=== PATIENT | male | born 1955 | race Caucasian/White ===

== ENCOUNTER 2023-03-17 06:00 | Inpatient (IN) | payer OTHER ==
[2023-03-16 15:12] LABS: Absolute Lymphocytes (CBC) 1.2 K/uL (0.7-4.9); Hematocrit 39.4 % (39.6-49.0); Lymphocytes % 10.7 % (15.3-44.8); MCV 86.8 fL (80-100); MPV 7.7 fL (7.6-11.3); RBC Red Blood Cell Count 4.53 M/uL (4.33-5.43)
--- NOTE | 2023-03-16 15:12 | RAD REPORT ---
EXAM DESCRIPTION: RAD - Chest Single View - 03/16/2023 3:03 pm CLINICAL HISTORY: PRE-OP COMPARISON: <Comparisons> FINDINGS: Lines: None. Lungs: No evidence of edema or pneumonia. Pleural: No significant pleural effusions or pneumothorax. Cardiac: The heart size is within normal limits. Mediastinum: Within normal limits. Bones: No acute fractures. Other: None IMPRESSION: No acute cardiopulmonary disease.
[2023-03-17] MEDS ORDERED: CEFAZOLIN SODIUM 1 GM/VIAL ONE (06:24)
[2023-03-17] MEDS ORDERED: Ringers Lactate 1,000 ML IV ONE (06:24)
[2023-03-17] MEDS ORDERED: BUPIVACAINE 0.5% PF 10 ML VIAL ONE ×2 (06:59→08:07)
[2023-03-17] MEDS ORDERED: MIDAZOLAM HCL 2 MG/2 ML INJ ONE (07:25)
[2023-03-17] MEDS ORDERED: FENTANYL CITR 100 MCG/2 ML ONE (07:25)
[2023-03-17] MEDS ORDERED: propofoL 200 MG/20 ML VIAL IV ONE ×2 (07:25→08:07)
[2023-03-17] MEDS ORDERED: LIDOCAINE 2% MPF 5 ML VIAL ONE (07:26)
[2023-03-17] MEDS ORDERED: ONDANSETRON 4 MG/2 ML VIAL ONE (07:26)
[2023-03-17] MEDS ORDERED: dexAMETHasone 4 MG/ML VIAL ONE (08:03)
--- NOTE | 2023-03-17 08:46 | P.OP ---
Date of Service: 03/17/23 Preop diagnosis: Infected cyst right posterior shoulder Postop diagnosis: Same with necrotizing infection down to the muscle Procedure performed: Wide excision of infected sebaceous cyst 10 x 8 cm to muscle Surgeon: Efraín Pyle MD School Principal: None Estimated blood loss: Minimal Specimen: Cyst and pus Findings: As above Anesthesia: General Complications: None Drains: None Fluids and blood products: Nonapplicable Disposition: Recovery room Operative note: Patient brought to the OR and placed in supine position. General anesthesia begun. Patient placed in the left lateral position. Patient prepped and draped in the usual sterile fashion. Marcaine 0.5% infiltrated for postop pain control. 15 blade used to make a 10 x 4 cm incision and then dissection proceeded to excise this infected cyst down to the muscle. The cyst itself was approximately 10 x 8 cm. There was some purulence inside the cyst. Cultures were done. Cyst wall was attached to the muscle on the posterior aspect of the wound. Wound was irrigated and bleeding controlled with cautery. All nonviable tissue was excised. Then a wound VAC was placed in the standard fashion. Patient was awakened and taken to recovery room in good general condition. CC: Dr. Pitts's office
[2023-03-17] MEDS: FENTANYL CITR 100 MCG/2 ML ONE ×2 (09:03→09:08)
[2023-03-17] MEDS ORDERED: KETOROLAC 30 MG/ML INJ ONE (09:07)
[2023-03-17] MEDS ORDERED: HYDROMORPHONE HCL 1 MG/ML INJ ONE (09:19)
[2023-03-17] MEDS ORDERED: ONDANSETRON 4 MG/2 ML VIAL IV PRN (10:09)
[2023-03-17] MEDS ORDERED: HYDROMORPHONE HCL 1 MG/ML INJ IV PRN (10:09)
[2023-03-17] MEDS ORDERED: HYDROCODONE/APAP 7.5/325 MG TAB PO PRN (10:10)
[2023-03-17 12:17] VITALS: BMI 27.2
[2023-03-17] MEDS: NACHLORIDE 0.45% 1,000 ML IV SCH (12:41)
[2023-03-17] MEDS: VANCOMYCIN 1.5 GM in NA CHLORIDE 0.9% 500 ML IVPB SCH ×2 (12:42→23:36)
[2023-03-17] MEDS ORDERED: TRAMADOL HCL 50 MG TAB PO PRN (14:25)
[2023-03-17] MEDS ORDERED: ACETAMINOPHEN 500 MG TAB PO PRN (14:26)
[2023-03-17] MEDS: PIPER TAZO 3.375 GM in NA CHLORIDE 0.9% 100 ML IV SCH (17:01)
--- NOTE | 2023-03-17 21:12 | HP ---
Date of Admission: 03/17/2023 Chief Complaint: Back pain. History Of Present Illness: This is a 68-year-old very pleasant male patient who came into office on 03/13/2023 with painful swelling over his right upper back. The patient has a history of lipoma for a long time and never had any symptoms related to that and had remained unchanged for many years, bu t about 3 to 4 days before he came to see me, he started to have pain in this area and started to hav e fever for couple of days. After I evaluated him, we started him on antibiotic doxycycline and pain medication tramadol and referred him to general surgeon Dr. Pyle as I was concerned about infected lipoma. Dr. Pyle evaluated him and scheduled him to have surgery as outpatient today and after the surgery, Dr. Pyle informed me regarding findings and recommendation to admit him to hospital for fur ther management including IV antibiotics and wound care management. Allergies: HYDROCODONE CAUSING NAUSEA. Medications: At home he takes tramadol 50 mg 2 times a day as needed for pain, which was just starte d last week; amlodipine 5 mg 2 times a day; atorvastatin 20 mg daily; lisinopril/HCTZ 20/12.5 one tab let 2 times a day; and omeprazole 20 mg daily. Review of Systems: Constitutional: As mentioned above. Dermatology: As mentioned above. All other systems reviewed and negative. Past Medical History: Significant for hypertension, mixed hyperlipidemia, gastroesophageal reflux di sease, benign prostatic hypertrophy, and erectile dysfunction. Past Surgical History: Carpal tunnel surgery. Family History: Father , had pulmonary embolism. Mother had heart disease, diabetes, uterine ca ncer. Social History: Positive for smoking. Use of alcohol weekly. Physical Examination: Vital Signs: Temperature 97.4, pulse 65, respiratory rate 16, blood pressure 103/66, and oxygen satu ration 100%. Height 5 feet 10 inches, weight 190 pounds. General: Awake, alert, oriented, not in distress. HEENT: Head atraumatic, normocephalic. Conjunctivae nonerythematous. Sclerae white. Mouth, no thr ush or edema noted. Ears/Nose, no mass, lesion, discharge noted. Neck: Supple. No JVD, lymph nodes, bruit, thyromegaly noted. Lungs: Bilateral good equal air entry. Clear to auscultation. No rhonchi. No rales. Heart: Normal heart sounds, no murmur or gallop. Abdomen: Soft, bowel sounds normal. No guarding, rigidity, tenderness, mass, hepatosplenomegaly, dis tention, or bruit noted. Extremities: No leg edema. No calf tenderness. Skin: No rash, ulcer, cellulitis. Lymphatics: No lymph node enlargement in neck, supraclavicular, infraclavicular region. Neuro: No focal neurological deficit. Chest: Unremarkable. External Genitalia: Deferred. Rectal: Deferred. Back: Examination shows presence of wound VAC dressing behind the right posterior axillary fold. Morley rrounding skin appears normal. Laboratory Data: Yesterday white count was 11.6, hemoglobin 12.8, and platelets 349. Sodium 136, po tassium 4, chloride 103, bicarb 30, BUN 17, creatinine 0.86, and glucose 99. Impression: 1.Abscess, back. 2.Hypertension. 3.Mixed hyperlipidemia. 4.Gastroesophageal reflux disease. 5.Benign prostatic hypertrophy. 6.Anemia, unspecified. Plan: Admit the patient to hospital for further evaluation and management of this problem. The [facility] ent is appropriate for inpatient and is expected to spend 2 midnights in hospital. We will continue to follow with Dr. Pyle regarding wound care management. We will go ahead and start him on empiric antibiotic right now, which is Zosyn and vancomycin. SCDs were ordered for DVT prophylaxis. The pat ient's blood pressure is on the lower side right now and we will not start any antihypertensive medic ation at this point, but monitor blood pressure and start antihypertensive medication at appropriate time. For hyperlipidemia, we will start statin therapy per order. For gastroesophageal reflux disea se, we will start proton-pump inhibitor, which is pantoprazole per order. The patient really does no t have any pain when I saw him this afternoon and he does not want to take hydrocodone, so I have ord ered Tylenol for mild pain, tramadol for moderate pain, and he already has Dilaudid ordered for sever e pain. Plan of treatment discussed with him and I will see him tomorrow for followup. ZACARIAS/MODL Voice ID: [id number]
[2023-03-18] MEDS: NACHLORIDE 0.45% 1,000 ML IV SCH ×3 (00:20→23:32)
[2023-03-18] MEDS: PIPER TAZO 3.375 GM in NA CHLORIDE 0.9% 100 ML IV SCH ×3 (02:10→16:17)
[2023-03-18 06:00] LABS: Absolute Lymphocytes (CBC) 1.6 K/uL (0.7-4.9); Hematocrit 37.9 % (39.6-49.0); Lymphocytes % 14.7 % (15.3-44.8); MCV 86.3 fL (80-100); MPV 8.3 fL (7.6-11.3); RBC Red Blood Cell Count 4.39 M/uL (4.33-5.43)
[2023-03-18 06:13] LABS: Magnesium 2.1 mg/dL (1.6-2.4); Phosphorus 3.4 mg/dL (2.5-4.9); Potassium 4.4 mEq/L (3.5-5.1)
--- NOTE | 2023-03-18 09:18 | PN ---
Date of Progress Note: 03/18/2023 Subjective: The patient is awake, alert. No complaints. Objective: Vital Signs: Stable, afebrile. Extremities: Examination of the wound reveals minimal erythema around the wound VAC. No warmth is p resent anymore. Laboratory Data: Reviewed. Still has slight leukocytosis with a left shift. Gram stain is showing gram-positive cocci in pairs and chains. Sensitivity is pending. Assessment: Status was wide excision of an infected sebaceous cyst. Recommendations: Continue IV antibiotics. Check cultures and adjust the antibiotics. Continue woun d care as ordered. Probable discharge in 48 hours. [facility]. /MODL Voice ID: [id number] Report ID: [id number]
[2023-03-18] MEDS: VANCOMYCIN 1.5 GM in NA CHLORIDE 0.9% 500 ML IVPB SCH ×2 (12:19→23:30)
[2023-03-18] MEDS: HYDROMORPHONE HCL 1 MG/ML INJ IV PRN (19:51)
[2023-03-19] MEDS: PIPER TAZO 3.375 GM in NA CHLORIDE 0.9% 100 ML IV SCH ×3 (01:55→16:24)
[2023-03-19] MEDS: HYDROMORPHONE HCL 1 MG/ML INJ IV PRN ×4 (02:13→21:08)
[2023-03-19] MEDS: VANCOMYCIN 1.25 GM in NA CHLORIDE 0.9% 250 ML IVPB SCH ×2 (11:57→23:26)
--- NOTE | 2023-03-19 14:49 | EKG ---
Test Date: 2023-03-16 Test Time: 15:13:03 Clinical Support Associate: KORTNEY MEASUREMENT RESULTS: Intervals: Rate: 73 ME: 174 QRSD: 94 QT: 392 QTc: 431 Riddle: P: 61 ME: 174 QRS: 51 T: 44 INTERPRETIVE STATEMENTS: Normal sinus rhythm Normal ECG Compared to ECG 12/17/2000 10:22:00 No significant changes Electronically Signed On 03-19-23 14:45:30 CDT by Jabier Espinosa
[2023-03-19] MEDS: NACHLORIDE 0.45% 1,000 ML IV SCH (21:45)
[2023-03-20] MEDS: PIPER TAZO 3.375 GM in NA CHLORIDE 0.9% 100 ML IV SCH ×2 (01:46→08:04)
[2023-03-20] MEDS ORDERED: PIPERACIL/TAZO 3.375 GM VIAL IV ONE (01:47)
[2023-03-20 02:25] VITALS: O2SAT 97
[2023-03-20] MEDS: NACHLORIDE 0.45% 1,000 ML IV SCH (02:44)
[2023-03-20 04:22] LABS: Absolute Lymphocytes (CBC) 2.9 K/uL (0.7-4.9); Hematocrit 38.1 % (39.6-49.0); Lymphocytes % 28.6 % (15.3-44.8); MCV 86.5 fL (80-100); MPV 8.2 fL (7.6-11.3); RBC Red Blood Cell Count 4.41 M/uL (4.33-5.43)
[2023-03-20 04:40] LABS: Albumin 2.6 g/dL (3.4-5.0); Bilirubin Total 0.3 mg/dL (0.2-1.0); Magnesium 2.2 mg/dL (1.6-2.4); Potassium 4.1 mEq/L (3.5-5.1); Protein, Total 6.3 g/dL (6.4-8.2)
[2023-03-20 08:24] VITALS: BP 149/81; TEMP 97.5
[2023-03-20] MEDS ORDERED: MEDIHONEY 44 ML TOPICAL TUBE TOP SCH (09:37)
[2023-03-20] MEDS: VANCOMYCIN 1.25 GM in NA CHLORIDE 0.9% 250 ML IVPB SCH (12:00)
--- NOTE | 2023-03-20 14:11 | PN ---
Date of Progress Note: 03/20/2023 Subjective: The patient is awake, alert. No complaint. Objective: Vital Signs: Stable, afebrile. Extremities: Wound is examined and it shows minimal fibrin. No surrounding erythema, warmth, or narendra ma. No purulent discharge. There was some granulation tissue present. Laboratory Data: His white count is normal with no left shift anymore and his sensitivity is still p ending, but appears to be a strep organism. Assessment: Status post wide excision of infected cyst. Recommendations: The patient can be discharged home on Augmentin and doxycycline per Dr. Pitts. Foll ow up with me in 1 week. Continue wound VAC with [facility]. /MODL Voice ID: [id number] Report ID: [id number]
--- NOTE | 2023-03-21 00:48 | PN ---
Date of Progress Note: 03/18/2023 Subjective: The patient was seen this morning for followup. No new complaints or problems reported by patient. He was lying in bed. Denies any nausea or vomiting. Does not have much pain in the magda gical site. Objective: Vital Signs: Reviewed. HEENT: Unremarkable. Lungs: Clear to auscultation. Heart: Sounds normal. Abdomen: Soft. Bowel sounds normal. No guarding, rigidity, tenderness, or distention. Extremities: No leg edema. Back: Patient has a wound VAC present, very slight erythematous area of the edges of the wound. Laboratory Data: White count 11.1, hemoglobin 12.4, platelets 353. Sodium 134, potassium 4.4, chlor sher 102, bicarb 30, BUN 19, creatinine 0.75, glucose 100. Impression: 1.Cellulitis/abscess, back. 2.Hypertension. 3.Hyperlipidemia. Plan: We will go ahead and continue current vancomycin and Zosyn. Follow up on culture results. We will continue wound care management per Dr. Pyle. Continue current pain medication per order and t he patient has SCD in place for DVT prophylaxis. I will see him tomorrow for followup. ZACARIAS/MODL Voice ID: [id number] Report ID: [id number]
--- NOTE | 2023-03-21 01:00 | PN ---
Subjective: The patient was seen today via tele visit, which included audio and video component. De nies any new complaints. No chest pain or shortness of breath. No nausea or vomiting. Denies any s ignificant amount of pain. Objective: Vital Signs: Reviewed. He remains afebrile. Laboratory Data: There are no new labs today. Wound culture is pending. Impression: 1.Cellulitis/abscess, back. 2.Hypertension. 3.Hyperlipidemia. Plan: We will go ahead and continue current IV antibiotics, which is vancomycin and Zosyn. We will go ahead and repeat blood work tomorrow morning and I will see him tomorrow for followup. Possible d ischarge to go home tomorrow depending on his condition. ZACARIAS/MODL Voice ID: [id number] Report ID: [id number]
--- NOTE | 2023-03-21 06:24 | DS ---
Date of Discharge: 03/20/2023 Disposition: Discharged to go home. Physical Examination: HEENT: Unremarkable. Lungs: Clear to auscultation. Heart: Sounds normal. Abdomen: Soft. Bowel sounds normal. No guarding, rigidity, tenderness, distention. Extremities: No leg edema. Back: Wound VAC dressing present over the wound and margin of this wound has very faint pink discolo ration of the skin. Slightly better today than day before yesterday. Laboratory Data: Today, sodium 136, potassium 4.1, chloride 105, bicarb 29, BUN 14, creatinine 0.87, glucose 89. Liver function tests unremarkable. White count today 10, hemoglobin 12.7, platelets 33 1. On admission, white count 11.6, hemoglobin 12.8, platelets 349. Discharge Medications And Instructions: 1.Continue all prior home medication. 2.Dressing care as per Dr. Pyle. 3.Follow with Dr. Pyle next [facility]. 4.Follow up at my office this week on . 5.Take Augmentin 875 mg 2 times a day for 10 days and doxycycline 100 mg 2 times a day for 10 days a nd prescription was sent to [facility]. Hospital Course: This is a 68-year-old very pleasant male patient admitted to hospital with a large wound on the back after he had outpatient surgery by Dr. Pyle. This surgery was done for infected s ebaceous cyst, and after surgery, Dr. Pyle contacted me requesting admission to the hospital for IV antibiotics. Dr. Pyle applied wound VAC to this wound and IV vancomycin and Zosyn were started. Pa in medication was ordered, that he used it as needed. His home medications were continued. Overall, his condition has improved, and today he was discharged to go home in stable condition. Final Diagnoses: 1.Abscess, back. 2.Infected sebaceous cyst. 3.Hypertension. 4.Hyperlipidemia, mixed. 5.Gastroesophageal reflux disease. 6.Benign prostatic hypertrophy. 7.Anemia, unspecified. ZACARIAS/MODL Voice ID: [id number] Report ID: [id number]
== END 2023-03-20 16:06 | disposition home health service (06) | DRG 580 ==
LOC: OR 06:00 → 2ND 11:37 → OBSVTOIN 11:37
PROVIDERS: ADMIT Surgery; ATTEND Surgery
PROC: 0KB50ZZ Excision of Right Shoulder Muscle, Open Approach (ICD-10-PCS; principal; 2023-03-17 07:30)
DX: L72.3 Sebaceous cyst (principal); L02.212 Cutaneous abscess of back [any part, except buttock and flank]; M60.011 Infective myositis, right shoulder; L03.312 Cellulitis of back [any part except buttock and flank]; E78.2 Mixed hyperlipidemia; I10 Essential (primary) hypertension; K21.9 Gastro-esophageal reflux disease without esophagitis; N40.0 Benign prostatic hyperplasia without lower urinary tract symptoms; D64.9 Anemia, unspecified; Z88.5 Allergy status to narcotic agent; Z79.899 Other long term (current) drug therapy
CPT/HCPCS: 36415; 71045; 80048; 80053; 80202; 83735; 84100; 85025; 87070; 87075; 87205; 88304; 93005; 94010; J0690; J1100; J1170; J2001; J2250; J2405; J2543; J2704; J3010; J7040; J7050; J7120